=== PATIENT | male | born 1990 | race African-American/Black ===

== ENCOUNTER 2021-03-07 23:44 | Emergency (ER) | payer SELFPAY ==
[2021-03-07 23:45] VITALS: BP 130/71; PULSE 94; RESP 18; TEMP 36.5; O2SAT 95; BMI 26.3
--- NOTE | 2021-03-08 00:19 | EKG12_ITS ---
Test Reason : CP Blood Pressure : / mmHG Vent. Rate : 093 BPM Atrial Rate : 093 BPM P-R Int : 152 ms QRS Dur : 080 ms QT Int : 342 ms P-R-T Axes : 058 075 047 degrees QTc Int : 425 ms Normal sinus rhythm Normal ECG Confirmed by TERRENCE WOLFE, THOMPSON ([id number]), state editor DANTE MENESES ([id number]) on 03/09/2021 1:59:46 PM Referred By: MR Confirmed By:THOMPSON OCAMPO MD
--- NOTE | 2021-03-08 00:19 | RAD_ITS ---
STUDY: X-RAY CHEST REASON FOR EXAM: Male, 30 years old. chest pain TECHNIQUE: Frontal and lateral views of the chest. COMPARISON: None. FINDINGS: The lungs are clear and expanded. There is no demonstrated pleural abnormality. Normal size heart. Normal mediastinum and kari. Normal visualized pulmonary arteries. Normal visualized aortic arch and descending thoracic aorta. Normal visualized thoracic spine. Normal visualized ribs, clavicles, and shoulders. There is no demonstrated abnormality of the visualized soft tissue structures of the upper abdomen. RAD/Chest PA and Lateral IMPRESSION: Normal x-ray examination of the chest. Electronically Signed: Flakito Sol MD at 1:26 EDT Tel , Service support ,
[2021-03-08 00:25] LABS: Absolute Lymphocyte Count 1.23 X10^3/uL (0.83-4.51); Absolute Neutrophil Count 4.8 X10^3/uL (2.0-7.7); Basophil# 0.05 X10^3/uL; Basophil% 0.7 % (0-1); Hematocrit 43.9 % (40-54); Hemoglobin 14.9 g/dL (13.0-16.5); Lymphocyte # 1.23 X10^3/ul (0.83-4.51); Lymphocyte % 16.3 % (19-41); Mean Corp Hgb Conc 33.9 g/dL (32-36); Mean Corpuscular Hgb 31.2 pg (27.0-32.0); Mean Platelet Vol. 11.4 fl (6.2-12.0); Monocyte# 1.17 X10^3/uL; Monocyte% 15.5 % (0-10); NRBC Flagged by Analyzer 0 % (0-5); Neutrophil # 4.76 X10^3/uL (2.7-7.7); Neutrophil % 63.2 % (47-70); Platelet Count 170 K/mm3 (150-450); RBC Distribution Width SD 43.8 fl (35.1-43.9); Red Blood Count 4.77 M/mm3 (4.6-6.2); White Blood Count 7.5 K/mm3 (4.4-11.0)
[2021-03-08 00:35] VITALS: PULSE 94; RESP 20; O2SAT 95
[2021-03-08 00:44] LABS: ALB/GLOB Ratio 0.9 RATIO (0.9-2.4); AST(SGOT) 34 U/L (15-37); Alanine Aminotransfer ALT/SGPT 34 U/L (16-61); Alkaline Phosphatase 62 U/L (45-117); Anion Gap 8 (5-15); BUN 6 mg/dL (7-18); Calcium,Total 8.8 mg/dL (8.5-10.1); Chloride 103 mmol/L (98-107); Creatinine, Serum 1.21 mg/dL (0.70-1.30); EST Glomerular Filtration Rate 74 mL/min (>60); Est Glom Filt Rate - Afr Amer 90 mL/min (>60); Estimated Creatinine Clearance 97.09 ml/min; Globulin 4.3 g/dL (2.2-4.2); Glucose 107 mg/dL (74-106); Lipase 79 U/L (73-393); Potassium 3.9 mmol/L (3.5-5.1); Protein, Total 8.3 g/dL (6.4-8.2); Sodium Level 135 mmol/L (136-145); Troponin-I HS 4.2 pg/mL (3.0-78.5)
[2021-03-08 01:06] VITALS: BP 128/80; PULSE 88; RESP 16; O2SAT 99
[2021-03-08 02:03] VITALS: BP 129/89; PULSE 94; RESP 20; O2SAT 100
--- NOTE | 2021-03-08 02:03 | EDS_ITS ---
HPI History of Present Illness Chief Complaint: Chest Pain Narrative Narrative: Patient presenting for evaluation secondary to chest pain. Patient states that he has had chest pain over the course about the last 4 months. It is a reproducible chest pain that is worse with palpation movement and specific bending exercises. Patient states it will come and go its not associated with palpitations or shortness of breath. Additionally the patient states that he is coming in because he has some issues with alcoholism. He states that he has been a daily drinker for quite some time. He states that he is not suicidal homicidal or hallucinating and is not currently withdrawing he most recently drank today. Patient is not presenting with requests for detox at this time, but recognizes that he has a problem and that he needs to seek some help due to the fact that he had multiple family members that have had adverse health outcomes from alcoholism in the past. Patient denies any other substance use. He denies any cardiovascular risk factors. He denies any DVT or PE risk factor s. Review of systems otherwise negative. [facility] Home Medications NK 03/08/21 [History Last Taken Unknown] Allergy/AdvReac Type Severity Reaction Status Date / Time No Known Allergies Allergy Verified 03/07/21 23:47 Social History Smoking Status: Current every day smoker tobacco type: cigarettes ROS ROS ED Constitutional Constitutional ED: Denies fever(s) Eyes Eyes: Denies change in vision ENT ENT ED: Denies rhinorrhea or sore throat Cardiovascular Cardiovascular: Reports as per HPI and chest pain Respiratory/Chest Respiratory/Chest: Denies cough, dyspnea or dyspnea on exertion Gastrointestinal Gastrointestinal: Denies abdominal pain, nausea or vomiting Genitourinary Genitourinary ED: Denies dysuria Musculoskeletal Musculoskeletal: Denies myalgias or neck pain Integumentary Denies rash Neurologic Neurologic: Denies headache(s), paresthesias or weakness Psychiatric Psychiatric: Denies depression Endocrine Endocrinology: Denies polydipsia or polyuria Hematologic/Lymphatic Hematologic/Lymphatic: Denies easy bleeding or easy bruising Allergic/Immunologic Allergic/Immunologic ED: Denies urticaria EXAM Physical Exam Const Vital Signs: 03/07/21 23:45 03/08/21 00:35 03/08/21 00:36 Temperature 97.7 F L Temperature Source Temporal Pulse Rate 94 94 Respiratory Rate 18 20 H Respiratory Effort Respiratory Pattern Blood Pressure 130/71 H Blood Pressure Mean 90 Pulse Ox 95 95 Oxygen Delivery Method Room Air Room Air 03/08/21 00:48 03/08/21 01:06 Temperature Temperature Source Pulse Rate 88 Respiratory Rate 16 Respiratory Effort Normal Respiratory Pattern Normal Blood Pressure 128/80 H Blood Pressure Mean 96 Pulse Ox 99 Oxygen Delivery Method Room Air Positive well nourished and well developed General Appearance ED: well developed and NAD HEENT Reports moist mucous membranes normocephalic and atraumatic Eyes EOMs intact bilaterally Neck no lymphadenopathy, supple and no JVD Chest Wall inspection of chest normal Chest Narrative: No evidence of vesicular rash Tenderness palpation the left anterior chest no evidence of step-offs or deformity Chest: tenderness Resp normal respiratory effort and clear to auscultation bilaterally Auscultation: Negative for rales, rhonchi or wheezes Cardio regular rate, regular rhythm, S1 normal heart sound, S2 normal heart sound and no murmurs Peripheral Pulses: radial pulses present and posterior tibial pulses present GI normal to inspection, nondistended, normoactive bowel sounds, soft to palpation and non-tender Extremity normal to inspection Extremity Narrative: Calves are supple no palpable cord General Extremety ED: Negative for edema or tenderness General Extremity: Negative for edema Neuro oriented x3 and no sensory deficits noted Sensorium / Orientation: awake and alert Motor Exam: strength abnormal Psych mental status grossly normal Skin no rashes or lesions noted Heart Score History: Slightly/Non-Suspicious ECG: Normal Age: </= 45 years Risk Factors: 1 or 2 Risk Factors Troponin: </= Normal Limit Score: 1 MDM MDM MDM Narrative Medical decision making narrative: Patient presented secondary to chest pain. Work-up from chest pain standpoint is negative including chest x-ray by my personal review as well as radiology that was negative, EKG that was negative, and lab work including a high-sensitivity troponin there were negative. His pain seems more musculoskeletal this to be treated conservatively with [id number]-[id number] medications his heart score is a maximum of 1. Patient also is presenting with concerns for alcoholism, I did offer detox states that he is not ready for that at this point. Patient is not suicidal or homicidal. He does not appear to be acutely intoxicated currently on think that he requires to be medically observed. Patient will be discharged at this point with outpatient resources for substance abuse. Patient was discharged in stable condition. Lab Data Labs: Laboratory Results - last 24 hr 03/08/21 03/08/21 00:06 00:06 WBC 7.5 RBC 4.77 Hgb 14.9 Hct 43.9 MCV 92.0 MCH 31.2 MCHC 33.9 RDW Std Deviation 43.8 RDW Coeff of Amber 13.0 Plt Count 170 MPV 11.4 Immature Gran % (Auto) 0.300 Neut % (Auto) 63.2 Lymph % (Auto) 16.3 L [place] % (Auto) 15.5 H Eos % (Auto) 4.0 Baso % (Auto) 0.7 Absolute Neuts (auto) 4.8 Absolute Lymphs (auto) 1.23 Nucleated RBC % 0 Sodium 135 L Potassium 3.9 Chloride 103 Carbon Dioxide 24.0 Anion Gap 8 BUN 6 L Creatinine 1.21 Estim Creat Clear Calc 97.09 Est GFR (MDRD) Af Amer 90 Est GFR (MDRD) Non-Af 74 BUN/Creatinine Ratio 5.0 L Glucose 107 H Calcium 8.8 Total Bilirubin 0.50 AST 34 ALT 34 Alkaline Phosphatase 62 Troponin I High Sens 4.2 Total Protein 8.3 H Albumin 4.0 Globulin 4.3 H Albumin/Globulin Ratio 0.9 Lipase 79 Radiography Chest X-Ray - ED: 2 View, Read by ED Physician and Normal Diagnostic Testing: Radiology Impression Chest X-Ray 03/08/21 00:19 IMPRESSION: Normal x-ray examination of the chest. Electronically Signed: Flakito Sol MD at 1:26 EDT Tel , Service support , EKG Initial EKG: Attestation: I personally reviewed and interpreted this EKG as follows: (Sinus rhythm at [address] segments normal T waves normal MD and QTc intervals no evidence of WPW or Brugada morphology no evidence of acute ischemia or arrhythmia.) Discharge Plan Triage Chief Complaint: Chest Pain ED Provider: Loyd Ambrosio Dx/Rx/DC Orders Clinical Impression: Chest pain, Alcohol dependence Instructions: Alcoholism: Getting Help, ED Chest Pain, Noncardiac Prescriptions: No Action NK RF: 0 Primary Care Provider: Care Physician,No Primary Referrals: Counseling,Center [GROUP OF PHYSICIANS] - Care Physician,No Primary [Primary Care Provider] - Disposition Disposition: Home, Self Care
== END 2021-03-08 02:16 | disposition home or self-care (01) ==
PROVIDERS: Emergency Provider Emergency Medicine
DX: R07.9 Chest pain, unspecified (principal); F10.20 Alcohol dependence, uncomplicated; Y90.9 Presence of alcohol in blood, level not specified; F17.210 Nicotine dependence, cigarettes, uncomplicated
CPT/HCPCS: 71046; 80053; 83690; 84484; 85025; 93005; 99283; A4216

== ENCOUNTER 2024-03-07 02:10 | Emergency (ER) | payer SELFPAY ==
[2024-03-07 02:11] VITALS: BP 119/82; PULSE 90; RESP 20; TEMP 35.8; O2SAT 95; BMI 29.1
--- NOTE | 2024-03-07 02:18 | RAD_ITS ---
INDICATION: trauma EXAMINATION/TECHNIQUE: X-RAY - RIGHT XR Tibia/Fibula 1 View 2 VIEWS COMPARISON: No relevant prior comparison study available FINDINGS: SOFT TISSUES: No soft tissue swelling or gas. No radiopaque foreign body. BONES/JOINTS: Displaced comminuted fractures of the proximal fibular and tibial diaphysis. No sclerotic or destructive changes observed. RAD/Tibia & Fibula 2 Views IMPRESSION: Displaced comminuted fractures of the proximal fibular and tibial diaphysis. Electronically Signed: Flakito Sol MD at 3:38 EDT ,
--- NOTE | 2024-03-07 02:18 | EKG12_ITS ---
Test Reason : DYSRHYTHMIA Blood Pressure : / mmHG Vent. Rate : 077 BPM Atrial Rate : 077 BPM P-R Int : 136 ms QRS Dur : 086 ms QT Int : 370 ms P-R-T Axes : 074 087 063 degrees QTc Int : 418 ms Normal sinus rhythm Normal ECG Confirmed by Loyd Manuel ([id number]), material expeditor JAMEE FLOR ([id number]) on 03/10/2024 10:33:46 AM Referred By: Confirmed By:Loyd Manuel
--- NOTE | 2024-03-07 02:18 | RAD_ITS ---
INDICATION: Trauma EXAMINATION/TECHNIQUE: X-RAY - XR Chest 1 View COMPARISON: Prior study dated: FINDINGS: LINES/DEVICES: None. LUNGS: No consolidation, edema or effusion. No pneumothorax. MEDIASTINUM AND CARDIOVASCULAR STRUCTURES: Cardiac silhouette not enlarged. Central airways and mediastinal contour are unremarkable. BONES AND SOFT TISSUES: Unremarkable. RAD/Chest 1 View (Portable) IMPRESSION: No radiographic evidence of acute cardiopulmonary disease. Electronically Signed: Flakito Sol MD at 3:30 EDT ,
--- NOTE | 2024-03-07 02:18 | RAD_ITS ---
INDICATION: trauma EXAMINATION/TECHNIQUE: X-RAY - RIGHT XR Femur 1 View 2 VIEWS COMPARISON: No relevant prior comparison study available FINDINGS: SOFT TISSUES: No soft tissue swelling or gas. No radiopaque foreign body. BONES/JOINTS: Displaced fractures of the right superior and inferior pubic rami. There is right SI joint separation. No sclerotic or destructive changes observed. RAD/Femur 1 view IMPRESSION: Displaced fractures of the right superior and inferior pubic rami. There is right SI joint separation. Electronically Signed: Flakito Sol MD at 3:37 EDT ,
--- NOTE | 2024-03-07 02:18 | RAD_ITS ---
INDICATION: Trauma -- Pelvis 2 views EXAMINATION/TECHNIQUE: X-RAY - XR Pelvis 1 or 2 Views COMPARISON: No relevant prior comparison study available FINDINGS: PELVIC BONES: Displaced fractures of the right superior and inferior pubic rami. There is right SI joint separation. HIPS: The articular structures are unremarkable. No displaced fracture seen in this frontal view. SOFT TISSUES: No soft tissue swelling or gas. RAD/Pelvis 1 or 2 Views IMPRESSION: Displaced fractures of the right superior and inferior pubic rami. There is right SI joint separation. Electronically Signed: Flakito Sol MD at 3:39 EDT ,
[2024-03-07] MEDS: fentaNYL 100 MCG/2 ML Ampul 25 MCG IV (02:22)
[2024-03-07] MEDS: 0.9% Normal Saline (1000mL) 1,000 ML 999 ML IV ×3 (02:22→04:41)
[2024-03-07 02:31] LABS: Absolute Lymphocyte Count 4.86 X10^3/uL (0.83-4.51); Absolute Neutrophil Count 6.8 X10^3/uL (2.0-7.7); Basophil# 0.07 X10^3/uL; Basophil% 0.5 % (0-1); Eosinophil# 0.33 X10^3/uL; Eosinophils% 2.6 % (0-5); Hematocrit 44.4 % (40-54); Hemoglobin 14.9 g/dL (13.0-16.5); Lymphocyte # 4.86 X10^3/ul (0.83-4.51); Lymphocyte % 37.7 % (19-41); Mean Corp Hgb Conc 33.6 g/dL (32-36); Mean Corpuscular Hgb 31.6 pg (27.0-32.0); Mean Corpuscular Volume 94.1 fL (80-94); Mean Platelet Vol. 11.6 fl (6.2-12.0); Monocyte% 5.4 % (0-10); NRBC Flagged by Analyzer 0 % (0-5); Neutrophil # 6.84 X10^3/uL (2.7-7.7); Neutrophil % 53.1 % (47-70); Platelet Count 168 K/mm3 (150-450); RBC Distribution Width SD 44.7 fl (35.1-43.9); Red Blood Count 4.72 M/mm3 (4.6-6.2); White Blood Count 12.9 K/mm3 (4.4-11.0)
[2024-03-07 02:40] LABS: Prothrombin Time (Protime)PT. 13.5 SECONDS (11.7-14.9)
[2024-03-07 02:41] LABS: Partial Thromboplast Time 22.2 Seconds (24.1-36.2)
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
--- NOTE | 2024-03-07 02:55 | CT_ITS ---
INDICATION: Trauma EXAMINATION: CT CERVICAL SPINE - CT Spine Cervical W/O Contrast Injection TECHNIQUE: Helically acquired images were obtained of the cervical spine. 2D reformatted images were reviewed. The protocol utilizes one or more of the following dose reduction techniques: automated exposure control, adjustment of mA and/or kV according to patient size,and/or use of iterative reconstruction technique. IV Contrast dosage and agent: None. RADIATION DOSAGE (If Supplied By Facility): CTDIvol = ( 28.11 ) mGy, DLP = ( 601.88 ) mGycm COMPARISON: No relevant prior comparison study available FINDINGS: VERTEBRAE: No fracture or traumatic subluxation. No discrete lytic or blastic abnormality. Normal alignment. Normal craniocervical junction and cervicothoracic junction. DISCS and SPINAL CANAL: Disc heights are preserved. No critical stenosis. NECK SOFT TISSUES: No prevertebral soft tissue swelling. There is no cervical adenopathy. LUNG APICES: Clear. CT/Spine Cervical without Contras IMPRESSION: No evidence of acute cervical spinal fracture or spondylolisthesis. Electronically Signed: Flakito Sol MD at 3:51 EDT Reading Location ID and State: [facility] / [place] Tel , Service support ,
--- NOTE | 2024-03-07 02:55 | CT_ITS ---
INDICATION: Trauma EXAMINATION: CT BRAIN - CT Head or Brain W/O Contrast Injection TECHNIQUE: Multiple axial images were obtained of the head without intravenous contrast. The protocol utilizes one or more of the following dose reduction techniques: automated exposure control, adjustment of mA and/or kV according to patient size,and/or use of iterative reconstruction technique. IV Contrast dosage and agent: None. RADIATION DOSAGE (If Supplied By Facility): CTDIvol = ( 44.99 ) mGy, DLP = ( 880.47 ) mGycm COMPARISON: No relevant prior comparison study available FINDINGS: BRAIN PARENCHYMA: No intra- or extra-axial hemorrhage. No evidence of acute infarct. No intracranial mass or mass effect. There is preservation of the alvarez/white matter interface. Posterior fossa structures are unremarkable. CSF SPACES: Appropriate for age. No hydrocephalus. Basal cisterns are patent. CALVARIUM, SKULL BASE, PARANASAL SINUSES AND MASTOID AIR CELLS: Clear. No discrete lytic or blastic abnormalities. ORBITS: Both globes, extraocular muscles, optic nerves and retrobulbar fat appear unremarkable. ASPECTS Score for Acute Strokes: 10 CT/Brain/Head without Contrast IMPRESSION: Negative Brain CT without contrast. Electronically Signed: Flakito Sol MD at 3:51 EDT ,
[2024-03-07 02:59] LABS: AST(SGOT) 189 U/L (15-37); Alanine Aminotransfer ALT/SGPT 122 U/L (16-61); Albumin, Serum 3.5 g/dL (3.2-5.0); Alkaline Phosphatase 47 U/L (45-117); Anion Gap 10 (5-15); BUN 9 mg/dL (7-18); BUN/Creat Ratio 7.3 RATIO (10-20); Bilirubin, Direct 0.15 mg/dL (0.00-0.30); Calcium,Total 8.5 mg/dL (8.5-10.1); Chloride 106 mmol/L (98-107); Creatinine, Serum 1.23 mg/dL (0.70-1.30); EST Glomerular Filtration Rate 71 mL/min (>60); Est Glom Filt Rate - Afr Amer 86 mL/min (>60); Estimated Creatinine Clearance 102.36 ml/min; Globulin 3.8 g/dL (2.2-4.2); Glucose 160 mg/dL (74-106); Potassium 3.6 mmol/L (3.5-5.1); Protein, Total 7.3 g/dL (6.4-8.2); Sodium Level 140 mmol/L (136-145)
[2024-03-07] MEDS: fentaNYL 100 MCG/2 ML Ampul 50 MCG IV (03:14)
[2024-03-07 03:16] VITALS: BP 111/68; PULSE 82; RESP 30; O2SAT 97
[2024-03-07] MEDS: HYDROmorphone 0.5 MG/0.5 ML SYRINGE IV ×2 (03:40→04:41)
[2024-03-07 04:00] VITALS: BP 115/70; PULSE 79; RESP 26; O2SAT 95
[2024-03-07 04:01] VITALS: BP 115/70; PULSE 82; RESP 16; TEMP 35.9; O2SAT 96
== END 2024-03-07 05:01 | disposition short-term general hospital (02) ==
PROVIDERS: Emergency Provider Emergency Medicine; Visit Provider Emergency Medicine
DX: S32.9XXA Fracture of unspecified parts of lumbosacral spine and pelvis, initial encounter for closed fracture (principal); F17.210 Nicotine dependence, cigarettes, uncomplicated; S09.90XA Unspecified injury of head, initial encounter; S82.401A Unspecified fracture of shaft of right fibula, initial encounter for closed fracture; S82.201A Unspecified fracture of shaft of right tibia, initial encounter for closed fracture; V09.3XXA Pedestrian injured in unspecified traffic accident, initial encounter; Y92.89 Other specified places as the place of occurrence of the external cause
CPT/HCPCS: 70450; 71045; 71260; 72125; 72170; 73551; 73590; 74177; 80048; 80076; 80320; 85025; 85610; 85730; 93005; 96361; 96374; 96375; 96376; 99284; J7030; Q9967; A4216; G0480